=== PATIENT | male | born 1970 | race Caucasian/White ===

== ENCOUNTER 2021-12-27 21:12 | Emergency (ER) | payer MEDICARE, OTHER, SELFPAY ==
[2021-12-27 21:39] VITALS: BP 150/78; PULSE 78; RESP 18; TEMP 37.2
[2021-12-27 22:03] VITALS: BP 150/71; RESP 18; TEMP 37.2; O2SAT 96
--- NOTE | 2021-12-27 22:45 | DI.RAD_ITS ---
Exam(s) XR PORTABLE CHEST AP EXAM: XR PORTABLE CHEST AP CLINICAL HISTORY: Cough, R/O PNA, PUI TECHNIQUE: 2D digital imaging was performed. COMPARISON: No exams were available for comparison FINDINGS: LUNGS: Clear. No pleural abnormality seen. HEART: Normal. AORTA: Normal. BONES: Unremarkable for age. Soft tissues: Unremarkable. IMPRESSION: No acute findings. DATA REPOSITORY: RADIATION DOSE DELIVERED:
--- NOTE | 2021-12-27 22:47 | W.ED.GENAD ---
Discharge Plan Disposition Patient Disposition: HOME Condition: Stable Discharge Details Clinical Impression: URI (upper respiratory infection) Primary Care Provider: Unknown,Unknown ED Provider: Kelley Cantu Home Meds and New Rx's Prescriptions: New doxycycline hyclate 100 mg tablet 100 mg PO BID 7 Days Qty: 14 0RF benzonatate 100 mg capsule 100 mg PO BID-TID PRN (Reason: cough) Qty: 7 0RF Discharge Instructions Instructions: Upper Respiratory Infection (ED) Additional Instructions: Please use the inhaler as directed 1 or 2 puffs every 4-6 hours as needed. Take the antibiotic twice daily for the next 7 days. You are given the first 1 here now. May use Tessalon Perles as needed for cough. Follow up with primary care provider in 3-5 days. Return to ED sooner if any worsening or concerns. Increase oral fluids. Please take Tylenol or Ibuprofen with food every 4-6 hours as needed for pain and swelling. Referrals: [facility] [Outside] [facility] [Outside] Discharge Data Discharge Date/Time-TO BE ENTERED AT DEPARTURE: 12/28/21 00:06 HPI General Mode of arrival: ambulatory. Date/Time Provider Initiated Documentation: 12/27/21 22:03. Limitations to Documentation: no limitations. Information obtained by: patient and RN notes reviewed. HPI Narrative: 51-year-old male presents to the ER with a chief complaint of cough x2 weeks. He reports that he was seen this last week at PCP office and they would not see him without a COVID test. He reports he has had 4 negative COVID tests in the last week. Recently had a peripheral vascular stent placed into his left leg for venous occlusion. History is somewhat unclear. [facility]. He is a smoker and he reports that he is currently trying to quit. He denies any fever chills no chest pain denies any shortness of breath. Denies any other associated symptoms. Past medical history includes but not limited to peripheral vascular disease, hypertension, He denies any cardiac history Related Data Home Medications Medication Instructions Recorded Confirmed benzonatate 100 mg capsule 100 mg PO BID-TID PRN cough #7 caps 12/27/21 doxycycline hyclate 100 mg tablet 100 mg PO BID 7 days #14 tabs 12/27/21 Previous Rx's Medication Instructions Recorded benzonatate 100 mg capsule 100 mg PO BID-TID PRN cough #7 caps 12/27/21 doxycycline hyclate 100 mg tablet 100 mg PO BID 7 days #14 tabs 12/27/21 Allergies Allergy/AdvReac Type Severity Reaction Status Date / Time naproxen Allergy Unknown Unverified 12/27/21 22:47 General Stated Complaint: RespSymp DAVID: 3 Review of Systems All systems reviewed & are unremarkable except as noted in HPI and below Constitutional Constitutional: Reports as per HPI, Denies body ache(s), Denies chills and Denies fever(s) Cardiovascular Cardiovascular: Denies chest pain, Denies chest pain at rest and Denies dyspnea Respiratory Respiratory: Reports cough, Denies hemoptysis, Denies excessive phlegm production and Denies dyspnea Gastrointestinal Gastrointestinal: Denies diarrhea, Denies nausea and Denies vomiting Musculoskeletal Musculoskeletal: Reports as per HPI and Reports other (Contusion noted from previous left stent placed) PFSH All Active Problems (Updated 12/27/21 @ 23:49 by Kelley Cantu NP) URI (upper respiratory infection) (Acute) Social History Smoking/Tobacco Use Status: Current every day Tobacco Type: cigarettes Years smoked: 36 Tobacco: How many years used: 36 Smoking risk assessment performed?: Yes Alcohol Intake: current Alcohol Intake frequency: 0-2 drinks per day Alcohol type: beer Drug use: Never Substance use type: does not use Do you feel safe at home: Yes Do you feel safe in your relationship?: Yes Exam Narrative Exam Narrative: Constitutional: Alert and oriented x3. Appears stated age. Normal body habitus. Head: Normocephalic, no trauma. Eyes: Pupils PERRL, Red reflex noted, EOM's intact. Eyelids symmetrical without lesions, discharge, or swelling. Chest: RRR, Normal S1, S2, distal pulses intact. Resp: Scattered expiratory wheezes throughout all lung rosas. Diminished in the bases. No significant increased work of breathing. Abdomen: Soft, non-distended, Normoactive bowel sounds all 4 quads. Musculoskeletal: Normal gait, 5/5 strength to all four extremities. Skin: Contusion noted left inner thigh. capillary refill less than 2 sec. Neurologic: Cranial nerves II-XII intact. Alert and oriented x 3. Motor: No deficits noted. Hematologic/Lymphatic: No ecchymosis, no lymphadenopathy. Course Vital Signs Vital signs: Vital Signs Temperature 37.2 C 12/27/21 21:39 Pulse 78 12/27/21 21:39 Respiratory Rate 18 12/27/21 21:39 Blood Pressure 150/78 H 12/27/21 21:39 Temperature 37.2 C 12/27/21 22:03 Temperature Source Oral 12/27/21 22:03 Pulse 78 12/27/21 21:39 Respiratory Rate 18 12/27/21 22:03 Respiratory Effort Short of Breath 12/27/21 22:03 Respiratory Depth Normal 12/27/21 22:03 Respiratory Pattern Normal 12/27/21 22:03 Blood Pressure 150/71 H 12/27/21 22:03 Blood Pressure Mean 97 12/27/21 22:03 Blood Pressure Position Sitting 12/27/21 21:39 Pulse Oximetry 96 12/27/21 22:03 Oxygen Delivery Method Room Air 12/27/21 22:03 Oxygen Flow Rate 0 12/27/21 22:03 Pain Level 1 12/27/21 22:03 PAWSS Have you Been Recently Intoxicated or Drunk Within the Last 30 days?: No Have you Ever Experienced Previous Episodes of Alcohol Withdrawal?: No Have you ever Experienced Withdrawal Seizures?: No Have you ever Experienced Delirium Tremens(DT)s?: No Have you ever undergone Alcohol Rehabilitation Treatment (i.e, inpt ot outpatient treatment programs)?: No Have you ever Experienced Blackouts?: No Have you ever Combined Alcohol with other Downers within the last 90 days?: No Have you ever Combined Alcohol with any other Substance of Abuse during the last 90 days?: No Positive Blood Alcohol level on Presentation? [PCS.BAL]: No Evidence of Increased Autonomic Activity (i.e. HR>120, tremor, sweating, agitation, nausea)?: No Result: 0
[2021-12-27] MEDS: Albuterol HFA 8 GM 60 PUFF INH IH (23:07)
[2021-12-27] MEDS: Benzonatate 100 MG CAP PO ×2 (23:07→23:55)
[2021-12-27 23:52] VITALS: BP 128/66; PULSE 66; RESP 18; TEMP 36.7; O2SAT 97
[2021-12-27] MEDS: Doxycycline Hyclate 100 MG CAP PO (23:55)
--- NOTE | 2021-12-27 23:58 | DI.VRAD_ITS ---
PROCEDURE INFORMATION: Exam: XR Chest Exam date and time: 12/27/2021 23:12 Age: 51 years old Clinical indication: Patient HX: Cough/r/o pna TECHNIQUE: Imaging protocol: Radiologic exam of the chest. Views: 1 view. COMPARISON: No relevant prior studies available. FINDINGS: Lungs: No consolidation. Pleural spaces: No pleural effusion. No pneumothorax. Heart/Mediastinum: No cardiomegaly. Bones/joints: No acute fracture. IMPRESSION: Negative portable chest. Dictated and Authenticated by: Antonia Ramirez MD. Ordering:[email or web address] Benson MD
== END 2021-12-28 00:06 | disposition home or self-care (01) ==
PROVIDERS: Emergency Provider Registered Nurse Emergency
DX: J06.9 Acute upper respiratory infection, unspecified (principal); R05.1 Acute cough
CPT/HCPCS: 99283; 71045